=== PATIENT | male | born 1990 | race Caucasian/White ===

== ENCOUNTER 2024-07-14 10:44 | Emergency (ER) | payer OTHER, SELFPAY ==
--- NOTE | 2024-07-14 10:54 | ED_ITS ---
HPI - Abdominal Pain General Chief Complaint: Urogenital-Male Stated Complaint: Back Pain/Male Problems Time Seen by Provider: 07/14/24 10:54 Source: patient, RN notes reviewed and old records reviewed Mode of arrival: ambulatory Limitations: no limitations History of Present Illness HPI narrative: Patient presents with complaints of intermittent back pain over the past 6 days that occasionally radiates to the left groin. He denies all injury and trauma. He reports that he has had similar symptoms in the past, reports the symptoms were not all the way workup because he was imprisoned. He has been taking ib uprofen without relief. He is observed ambulating with steady gait. He denies any fever, chills, sweats. Denies any numbness or tingling. Denies loss of bowel or bladder control. No other concerns or complaints today. Related Data Home Medications Medication Instructions Recorded Confirmed diphenhydramine HCl 50 mg capsule 50 mg PO DAILY 07/14/24 07/14/24 (Banophen) duloxetine 60 mg capsule,delayed 60 mg PO DAILY 07/14/24 07/14/24 release Allergies Allergy/AdvReac Type Severity Reaction Status Date / Time cyclobenzaprine Allergy Mild Anaphylaxis Verified 07/14/24 11:29 Penicillins Allergy Mild Nausea and Verified 07/14/24 10:46 Vomiting Review of Systems Review of Systems: All systems reviewed & are unremarkable except as noted in HPI and below Constitutional: Constitutional: Reports no additional constitutional complaints ENT: Reports system reviewed and no additional complaints, except as documented Cardiovascular: Cardiovascular: Reports no additional cardiovascular complaints Respiratory: Respiratory: Reports no additional respiratory complaints Gastrointestinal: Gastrointestinal: Reports no additional gastrointestinal complaints Genitourinary: Genitourinary: Reports no additional male genitourinary complaints and Reports as per HPI Musculoskeletal: Musculoskeletal: Reports no additional musculoskeletal complaints and Reports as per HPI PMFSH Comments At the time of my signature, I reviewed and agree with the nursing past medical, surgical, social, and family history. There is no relevant family history pertinent to the patient complaint. Exam Const: General: cooperative, no acute distress, alert and awake Orientation/consciousness: oriented to person, oriented to place and oriented to time HENMT: Head: normal to inspection Resp: Effort & Inspection: normal respiratory effort and able to speak in complete sentences Auscultation: clear to auscultation bilaterally, no crackles, no rales, no rhonchi and no wheezes Cardio: Palpation: normal PMI Rate: regular rate Rhythm: regular rhythm Heart sounds: S1 normal heart sound present and S2 normal heart sound present GI: GI Palp: No abdominal tenderness and Yes Soft to palpation Auscultation: normal bowel sounds : General: Yes no CVA tenderness Back/Spine/Pelvis: Back: no CVA tenderness Thoracic/Lumbar Spine: pain with thoraco-lumbar ROM Neuro: General: oriented to person, oriented to place and oriented to time Cranial nerves: Yes CN's II-XII intact bilaterally Psych: Appearance: grossly normal Thought process: Normal thought process present Insight: Good insight present (Psych) Judgement: Good judgement present (Psych) Course Course Level of Care: Express Care Visit Vital Signs Vital signs: Vital Signs Temperature 98.4 F 07/14/24 10:57 Pulse Rate 91 07/14/24 10:57 Respiratory Rate 19 07/14/24 10:57 Blood Pressure 178/100 H 07/14/24 10:57 Pulse Oximetry 99 07/14/24 10:57 Oxygen Delivery Room Air 07/14/24 10:57 Temperature 98.4 F 07/14/24 10:57 Pulse Rate 91 07/14/24 10:57 Respiratory Rate 19 07/14/24 10:57 Blood Pressure 178/100 H 07/14/24 10:57 Pulse Oximetry 99 07/14/24 10:57 Oxygen Delivery Room Air 07/14/24 10:57 Reviewed MDM - Abdominal Pain MDM Narrative Medical decision making narrative: Patient presents with complaints of low back pain that sometimes radiates to the groin. He is not having any urinary symptoms. Reassuring UA. STI panel pending, although patient does deny penile discharge. Extremely elevated blood pressure was discussed with patient, he does report that he has not had any medications for blood pressure in the past to his knowledge. States that this blood pressure is an outlier. He declines to have us recheck the blood pressure today. Says that he believes his blood pressure is elevated because he is ?mad?. Will treat as lumbar ago, patient intolerant of muscle relaxers. Therefore those will not be prescribed. Will do steroid burst. Patient advised to follow-up primary care provider. Emergency department for new or worse symptoms. Discharge instructions reviewed with patient, as well as provided in writing per nursing staff. The instructions also include specific and strict return/GO TO THE ER as well as f/u information. All questions have been answered, and the patient deny any further questions with discharge and discharge plan. Some parts of this dictation were generated by voice recognition software and may contain typographical and/or grammatical inaccuracies. Differential Diagnosis Differential diagnosis: Likely other (Differentials include radiculopathy, pyelonephritis, STI, UTI) Medical Records Attestation: I reviewed the patient's medical records. Lab Data Attestation: I reviewed the patient's lab results. Labs: Lab Results 07/14/24 Range/Units 10:58 POC Urine Color Yellow POC Urine Clarity Clear POC Urine pH 7.0 POC Ur Specif Combined [place] 1.020 POC Urine Protein Negative (Negative) POC Ur Glucose (UA) Negative (Negative) POC Urine Ketones Negative (Negative) POC Urine Blood Negative (Negative) POC Urine Nitrite Negative (Negative) POC Urine Bilirubin Negative (Negative) POC Urine Urobilinogen 0.2 POC U Leukocyte Esteras Negative (Negative) Discharge Plan Discharge Clinical Impression: Elevated blood pressure reading Back pain Qualifiers: Back pain location: low back pain Chronicity: acute Back pain laterality: bilateral Sciatica presence: without sciatica Qualified Code(s): M54.50 - Low back pain, unspecified Patient Disposition: Home, Self-Care Condition: Stable Instructions: Antibiotic Form, Acute Low Back Pain (ED) Additional Instructions: Take all medications as prescribed. Follow-up with primary care provider. Emergency department for new or worse symptoms. Blood pressure quite elevated today at 178/100. Normal blood pressure is 120/80 Patient Language: Turkish Prescriptions: New prednisone 50 mg tablet 50 mg PO DAILY Qty: 5 0RF No Action diphenhydramine HCl [Banophen] 50 mg capsule 50 mg PO DAILY duloxetine 60 mg capsule,delayed release(DR/EC) 60 mg PO DAILY Follow-up/Referrals: Angeles,MD Lauro [Primary Care Provider] - Time of Disposition: 11:26
[2024-07-14 10:57] VITALS: BP 178/100; PULSE 91; RESP 19; TEMP 36.9; O2SAT 99
[2024-07-14 11:11] LABS: EDUAAPPEAR Clear; EDUABILI Negative (Negative); EDUABLOOD Negative (Negative); EDUACOLOR1 Yellow; EDUAGLUCOSE Negative (Negative); EDUAKETONE Negative (Negative); EDUALEUKO Negative (Negative); EDUANITRATE Negative (Negative); EDUAPROTEIN Negative (Negative); EDUAUROBILI 0.2
[2024-07-14 19:15] LABS: Trichomonas Vag PCR NOT DETECTED (NOT DETECTE)
[2024-07-14 19:40] LABS: Chlamydia trachomatis NOT DETECTED (NOT DETECTE); Neisseria gonorrhoeae PCR NOT DETECTED (NOT DETECTE)
== END 2024-07-14 11:30 | disposition home or self-care (01) ==
PROVIDERS: Emergency Provider Nurse Practitioner Family; PCP Family Medicine
DX: R03.0 Elevated blood-pressure reading, without diagnosis of hypertension (principal); M54.50 Low back pain, unspecified
CPT/HCPCS: 81003; 87086; 87491; 87591; 87661; 99203; G0463

== ENCOUNTER 2024-09-15 10:55 | Emergency (ER) | payer OTHER, SELFPAY ==
[2024-09-15 11:03] VITALS: BP 141/74; PULSE 84; RESP 16; TEMP 36.3; O2SAT 98
--- NOTE | 2024-09-15 11:05 | ED.URI ---
HPI - URI/Sore Throat General Chief Complaint: Upper Respiratory Infection Stated Complaint: Cough/Bodyaches/Sinus Time Seen by Provider: 09/15/24 11:08 Source: patient Mode of arrival: ambulatory Limitations: no limitations History of Present Illness HPI Narrative: Tarik is a 34-year-old male patient presenting to the clinic today with complaints of cough, body aches, and sinus congestion. He denies any fever or chills. States symptoms started 2 days ago. Denies any chest pain or shortness of breath. MD elicited complaint: sore throat and nasal congestion Related Data Home Medications ?Medication ?Instructions ?Recorded ?Confirmed ?Last Taken ?Type duloxetine 60 mg capsule,delayed 60 mg PO DAILY 07/14/24 09/15/24 Unknown History release atenolol 25 mg tablet 25 mg PO Q24H 09/15/24 09/15/24 Unknown History bupropion HCl 150 mg 24 hr tablet, 150 mg PO DAILY 09/15/24 09/15/24 Unknown History extended release gabapentin 600 mg tablet 600 mg PO Q8H 09/15/24 09/15/24 Unknown History tramadol 50 mg tablet 50 mg PO DAILY 09/15/24 09/15/24 Unknown History Allergies Allergy/AdvReac Type Severity Reaction Status Date / Time cyclobenzaprine Allergy Mild Anaphylaxis Verified 09/15/24 10:57 Penicillins Allergy Mild Nausea and Verified 09/15/24 10:57 Vomiting Review of Systems Review of Systems: Pertinent positives per HPI. Patient denies any fever, chills, rash, headache, visual changes, dizziness, shortness of breath, chest pain, palpitations, nausea, vomiting, diarrhea, constipation, abdominal pain, or any urinary issues. PMFSH Comments At the time of my signature, I reviewed and agree with the nursing past medical, surgical, social, and family history. There is no relevant family history pertinent to the patient complaint. Exam Narrative: General: Well-developed, obese, in no apparent distress Head: Normocephalic, atraumatic Eyes: Pupils equally round and reactive to light bilaterally, EOM intact, sclera and conjunctive clear, no discharge, lids normal Ears: TMs intact and clear, ear canals clear, no drainage, grossly hearing normal. Nose: Nares patent, clear nasal discharge, no inflammation, no sinus tenderness. Mouth: Oral pharynx without lesions or masses, good dentition, MMM. Neck: Supple, trachea midline, no enlargement of anterior or posterior cervical nodes, no thyroid masses or goiter palpable. Cardio: Regular rate and rhythm, s1 and s2 normal, no murmur appreciated. Resp: Inspiratory and expiratory wheezing, no rhonchi, rales, or rubs Course Course Emergency Course: Portions of this record may have been created with voice recognition software. Level of Care: Express Care Visit Vital Signs Vital signs: Vital Signs Temperature 36.3 C L 09/15/24 11:03 Pulse Rate 84 09/15/24 11:03 Respiratory Rate 16 09/15/24 11:03 Blood Pressure 141/74 H 09/15/24 11:03 Pulse Oximetry 98 09/15/24 11:03 Oxygen Delivery Room Air 09/15/24 11:03 Temperature 36.3 C L 09/15/24 11:03 Pulse Rate 84 09/15/24 11:03 Respiratory Rate 16 09/15/24 11:03 Blood Pressure 141/74 H 09/15/24 11:03 Pulse Oximetry 98 09/15/24 11:03 Oxygen Delivery Room Air 09/15/24 11:03 Vital signs reviewed MDM - URI/Sore Throat MDM Narrative Medical decision making narrative: At the time of visit patient is resting comfortably on the exam table. Patient appears to be nontoxic. Labs: COVID testing was positive in the clinic today. Medications: DuoNeb treatment was given in the clinic today for inspiratory and expiratory wheezing. Wheezing improved after DuoNeb treatment was given and patient reports feeling as though he can take a deeper breath. Plan: Patient has COVID. Will send in prescription for albuterol inhaler. Supportive measures were discussed with the patient and they voiced understanding discharge instructions and agrees to treatment plan. Return precautions reviewed Differential Diagnosis Differential diagnosis: Likely upper respiratory infection, otitis media, sinusitis, viral infection, bronchitis, influenza, pharyngitis and other (COVID) Discharge Plan Discharge Clinical Impression: COVID-19 Patient Disposition: Home, Self-Care Condition: Stable Instructions: Antibiotic Form, How to Recover from COVID-19 at Home (ED) Additional Instructions: DuoNeb treatment was given in the clinic today. COVID test was positive May take DayQuil/NyQuil for cold/flu symptoms Take prescription medications only as prescribed-albuterol inhaler Increase fluids and stay well hydrated Tylenol/motrin for pain/fever Flonase and OTC antihistamines as directed Vicks vapor rub to open sinuses Sinus rinses for congestion Cepacol spray, cough drops, throat lozenges, warm tea with honey/lemon, gargle salt water to soothe throat BRAT diet for diarrhea Clear liquids x 24 hours then advance as tolerated for nausea/vomiting Go to the ED if you develop a worsening in your condition- high fever not controlled by Tylenol or Motrin, dehydration, weakness, lethargy, shortness of breath, or chest pain. Follow up with your PCP in 3-5 days if symptoms persist. Patient Language: [place] Prescriptions: New albuterol sulfate 90 mcg/actuation HFA aerosol inhaler 2 puff inhalation Q4-6H PRN (Reason: shortness of breath or wheezing) 30 Days Qty: 8.5 0RF No Action duloxetine 60 mg capsule,delayed release(DR/EC) 60 mg PO DAILY atenolol 25 mg tablet 25 mg PO Q24H bupropion HCl 150 mg tablet extended release 24 hr 150 mg PO DAILY gabapentin 600 mg tablet 600 mg PO Q8H tramadol 50 mg tablet 50 mg PO DAILY Follow-up/Referrals: Angeles,MD Lauro [Primary Care Provider] - Stand Alone Forms: Work/School Release IP Time of Disposition: 11:25 Quality NIHSS Nursing Documentation ED NIHSS nursing documentation: reviewed/agree
[2024-09-15] MEDS: IPRATROPIUM 0.5 MG/ALBUTEROL SULFATE 2.5 MG AMPUL.NEB 3 ML INHALATION (11:23)
[2024-09-15 11:26] LABS: EDCOVIDSCREEN Positive (Negative)
== END 2024-09-15 11:42 | disposition home or self-care (01) ==
PROVIDERS: Emergency Provider Nurse Practitioner Family; PCP Family Medicine
DX: U07.1 COVID-19 (principal); Z79.899 Other long term (current) drug therapy
CPT/HCPCS: 87426; 99213; G0463

== ENCOUNTER 2024-10-04 14:51 | Emergency (ER) | payer OTHER, SELFPAY ==
[2024-10-04 15:02] VITALS: BP 154/80; PULSE 77; RESP 16; TEMP 36.2; O2SAT 97
--- NOTE | 2024-10-04 15:30 | ED_ITS ---
HPI - URI/Sore Throat General Chief Complaint: Upper Respiratory Infection Stated Complaint: sore throat,cough,left ear pain Time Seen by Provider: 10/04/24 15:30 Source: patient and RN notes reviewed Mode of arrival: ambulatory Limitations: no limitations History of Present Illness HPI Narrative: 34-year-old male presents with concern for cough for 3 weeks. Reports he tested positive for COVID 3 weeks ago his cough has not gone away and has gotten worse recently. Reports over last several days he has developed sinus congestion, drainage, sore throat, ear pain. He reports he has been using his albuterol in haler about twice a day without much relief. MD elicited complaint: cough and nasal congestion Related Data Home Medications ?Medication ?Instructions ?Recorded ?Confirmed ?Last Taken ?Type duloxetine 60 mg capsule,delayed 60 mg PO DAILY 07/14/24 09/15/24 Unknown History release atenolol 25 mg tablet 25 mg PO Q24H 09/15/24 09/15/24 Unknown History bupropion HCl 150 mg 24 hr tablet, 150 mg PO DAILY 09/15/24 09/15/24 Unknown History extended release gabapentin 600 mg tablet 600 mg PO Q8H 09/15/24 09/15/24 Unknown History tramadol 50 mg tablet 50 mg PO DAILY 09/15/24 09/15/24 Unknown History Allergies Allergy/AdvReac Type Severity Reaction Status Date / Time cyclobenzaprine Allergy Mild Anaphylaxis Verified 09/15/24 10:57 Penicillins Allergy Mild Nausea and Verified 09/15/24 10:57 Vomiting Review of Systems Review of Systems: CONSTITUTIONAL: Reports malaise, chills, sweats EYES: Denies visual changes, redness, or discharge. ENT: Reports rhinorrhea, congestion, otalgia and sore throat. CARDIOVASCULAR: Denies chest pain, palpitations, or edema. RESPIRATORY: Reports cough, dyspnea. GASTROINTESTINAL: Denies abdominal pain, nausea, vomiting, diarrhea SKIN: Denies rash or itching. MUSCULOSKELETAL: Reports myalgia. NEUROLOGIC: Denies headache. All systems reviewed & are unremarkable except as noted in HPI and below PMFSH Comments At time of signature, agree with nursing past medical, surgical, social and family history. There is no relevant family history pertinent to the presenting complaint Exam Narrative: GENERAL: Nontoxic-appearing, well-nourished, and in no acute distress. HEAD: Normocephalic EYES: PERRLA, conjunctivae clear ENT: Nares clear. Mucous membranes moist. TM pearly fallon with sharp light reflex bilaterally; no tragal tenderness. Oropharynx not erythematous without lesions. Tonsils not enlarged and without exudate, no drooling, no hoarseness, no trismus, uvula midline. NECK: Supple. No lymphadenopathy CHEST: Expiratory wheeze throughout with scattered rhonchi, breath sounds equal. No rhonchi, rales, or stridor. No respiratory distress, speaks in full sentences. HEART: Regular rate and rhythm. No murmur heard. SKIN: Warm, dry, no rash. NEURO: Alert and oriented x3. PSYCH: Normal mood and affect Course Course Emergency Course: Patient is aware of diagnosis, understands and agrees to treatment plan. Anticipatory guidance given. Patient agrees to follow-up as directed and is aware of reasons to seek care at the emergency department. Portions of this record may have been created with voice recognition software Level of Care: Express Care Visit Vital Signs Vital signs: Vital Signs Temperature 97.1 F L 10/04/24 15:02 Pulse Rate 77 10/04/24 15:02 Respiratory Rate 16 10/04/24 15:02 Blood Pressure 154/80 H 10/04/24 15:02 Pulse Oximetry 97 10/04/24 15:02 Oxygen Delivery Room Air 10/04/24 15:02 Temperature 97.1 F L 10/04/24 15:02 Pulse Rate 77 10/04/24 15:02 Respiratory Rate 16 10/04/24 15:02 Blood Pressure 154/80 H 10/04/24 15:02 Pulse Oximetry 97 10/04/24 15:02 Oxygen Delivery Room Air 10/04/24 15:02 Reviewed. MDM - URI/Sore Throat MDM Narrative Medical decision making narrative: Differential diagnosis considered: Gilbert virus, strep pharyngitis, allergic rhinitis, upper respiratory tract infection, sinusitis, rhinosinusitis, nasopharyngitis. viral pharyngitis, otitis media, otitis externa, pneumonia, bronchitis, viral cough syndrome, viral syndrome, and influenza. Exam findings show no acute concerns or changes; patient is non-toxic appearing and is in no distress. Patient is appropriate for outpatient treatment and follow-up. Lab Data Attestation: I reviewed the patient's lab results. Critical Care Time Critical Care Time Critical Care Time: No Discharge Plan Discharge Clinical Impression: Lower respiratory tract infection Patient Disposition: Home, Self-Care Condition: Stable Instructions: Antibiotic Form, Acute Bronchitis (ED) Additional Instructions: Take medication as directed Recommend antihistamine such as Benadryl at night time and Zyrtec or Obdulia during the day Use inhaler as needed for cough, wheezing, shortness of breath or chest tightnes s. Also, recommend symptomatic treatment includes: rest, fluids, and increase humidity of the air at home. Recommend Acetaminophen as directed on the bottle to reduce fever, pain, headache. Avoid smoking/second-hand smoke. Please schedule a follow-up visit with your personal physician for further evaluation and treatment within 3-5days. Including recheck and discussion of your blood pressure. If your symptoms persist, change or worsen significantly before you can contact your personal physician then please, without delay, go to the emergency department for further evaluation. Patient Language: Indonesian Prescriptions: New azithromycin [Zithromax Z-Gildardo] 250 mg tablet See Rx Instructions .ROUTE .COMPLEX Qty: 6 0RF Rx Instructions: take 500 mg today (day 1), then 250 mg for 4 days (days 2-5) prednisone 20 mg tablet 40 mg PO DAILY 5 Days Qty: 10 0RF albuterol sulfate 90 mcg/actuation HFA aerosol inhaler 2 puff INHALATION QID PRN (Reason: shortness of breath or wheezing) Qty: 8.5 0RF No Action duloxetine 60 mg capsule,delayed release(DR/EC) 60 mg PO DAILY atenolol 25 mg tablet 25 mg PO Q24H bupropion HCl 150 mg tablet extended release 24 hr 150 mg PO DAILY gabapentin 600 mg tablet 600 mg PO Q8H tramadol 50 mg tablet 50 mg PO DAILY albuterol sulfate 90 mcg/actuation HFA aerosol inhaler 2 puff inhalation Q4-6H PRN (Reason: shortness of breath or wheezing) 30 Days Qty: 8.5 0RF Follow-up/Referrals: Angeles,MD Lauro [Primary Care Provider] - Stand Alone Forms: Work/School Release IP Time of Disposition: 15:42
[2024-10-04 15:50] LABS: EDSTREPNEGPOS1 Negative (Negative)
== END 2024-10-04 15:40 | disposition home or self-care (01) ==
PROVIDERS: Emergency Provider Nurse Practitioner; PCP Family Medicine
DX: J22 Unspecified acute lower respiratory infection (principal); I10 Essential (primary) hypertension; E78.00 Pure hypercholesterolemia, unspecified; K21.9 Gastro-esophageal reflux disease without esophagitis; F41.9 Anxiety disorder, unspecified; Z86.16 Personal history of COVID-19
CPT/HCPCS: 87081; 87880; 99213; G0463

== ENCOUNTER 2024-10-18 15:03 | Emergency (ER) | payer OTHER, SELFPAY ==
[2024-10-18 15:18] VITALS: BP 152/81; PULSE 66; RESP 16; TEMP 35.8; O2SAT 99
--- NOTE | 2024-10-18 16:37 | ED_ITS ---
HPI - Extremity Problem General Chief complaint: Extremity Problem,Nontraumatic Stated complaint: both feet hurt Time Seen by Provider: 10/18/24 16:20 Source: patient and RN notes reviewed Mode of arrival: ambulatory Limitations: no limitations History of Present Illness HPI Narrative: Patient presents today complaining of bilateral foot pain x1 month. Patient recently got out of longterm and is having trouble standing while working wearing the shoes he has. States he believes they may not wide enough and causing problems. He has been taking ibuprofen without relief. He has an appointment with Podiatry on 11/01/2024 but is wanting an evaluation and recommendations today at [facility]. Related Data Home Medications ?Medication ?Instructions ?Recorded ?Confirmed ?Last Taken ?Type duloxetine 60 mg capsule,delayed 60 mg PO DAILY 07/14/24 09/15/24 Unknown History release atenolol 25 mg tablet 25 mg PO Q24H 09/15/24 09/15/24 Unknown History bupropion HCl 150 mg 24 hr tablet, 150 mg PO DAILY 09/15/24 09/15/24 Unknown History extended release gabapentin 600 mg tablet 600 mg PO Q8H 09/15/24 09/15/24 Unknown History tramadol 50 mg tablet 50 mg PO DAILY 09/15/24 09/15/24 Unknown History Allergies Allergy/AdvReac Type Severity Reaction Status Date / Time cyclobenzaprine Allergy Mild Anaphylaxis Verified 10/18/24 15:13 Penicillins Allergy Mild Nausea and Verified 10/18/24 15:13 Vomiting Review of Systems Review of Systems: CONSTITUTIONAL: Denies body aches, fever, chills, or sweats. EYES: Denies visual changes, redness, or discharge. ENT: Denies rhinorrhea, congestion, sore throat, or otalgia. CARDIOVASCULAR: Denies chest pain, palpitations, or edema. RESPIRATORY: Denies cough or dyspnea. GASTROINTESTINAL: Denies abdominal pain, nausea, vomiting, or diarrhea. GENITOURINARY: Denies dysuria or hematuria. SKIN: Denies rash, itching, or wounds. MUSCULOSKELETAL: Bilateral foot pain NEUROLOGIC: Denies headache, numbness, tingling, or weakness. PSYCH: Denies depression or anxiety. PMFSH Comments At time of signature, I have reviewed and agree with nursing past medical, surgical, social and family history unless otherwise noted. Please see nursing chart for further information. There is no relevant family history pertinent to the presenting complaint Exam Narrative: GENERAL: Well-appearing, well-nourished, and in no acute distress. HEAD: Normocephalic, atraumatic. EYES: EOMI. No redness or drainage. Conjunctivae normal. ENT: Mucous membranes pink and moist. NECK: Normal AROM. CHEST: No respiratory distress. EXTREMITIES: Patient has very wide feet with thick calluses on the heels and plantar 1st and 5th MTP areas. On the lateral 5th distal metatarsal bilaterally, there are small areas of skin that appear to be rubbed raw from his shoes due to them being too narrow. These areas are tender to palpation. Small bunion on the left. SKIN: Warm, dry, no rash. Capillary refill normal. Normal skin turgor. NEURO: No focal deficits. Alert and oriented x3. Gait steady. PSYCH: Normal affect. No signs of depression or anxiety. Course Course Level of Care: Express Care Visit Vital Signs Vital signs: Vital Signs Temperature 96.4 F L 10/18/24 15:18 Pulse Rate 66 10/18/24 15:18 Respiratory Rate 16 10/18/24 15:18 Blood Pressure 152/81 H 10/18/24 15:18 Pulse Oximetry 99 10/18/24 15:18 Oxygen Delivery Room Air 10/18/24 15:18 Temperature 96.4 F L 10/18/24 15:18 Pulse Rate 66 10/18/24 15:18 Respiratory Rate 16 10/18/24 15:18 Blood Pressure 152/81 H 10/18/24 15:18 Pulse Oximetry 99 10/18/24 15:18 Oxygen Delivery Room Air 10/18/24 15:18 Reviewed MDM - Extremity (Nontraumatic) MDM Narrative Medical decision making narrative: Patient chest purchased a pair of, ?orthopedic shoes on line but they seem to narrow. Discussed within that he needs to be seen at a shoe store to have his feet properly measured for shoes as the seem quite wide. At this time, patient has a GPS ankle monitor and is only cleared to go home and work. Note written for patient to see if he could get cleared to go to a local shoe store to get measured for proper shoes before a podiatry appointment. Prescription for Mobic sent to pharmacy for pain. Anticipatory guidance given. Differential Diagnosis Differential diagnosis: Likely cellulitis and other (Friction wound, bunion, callus) Critical Care Time Critical Care Time Critical Care Time: No Discharge Plan Discharge Clinical Impression: Arthralgia of both feet Patient Disposition: Home, Self-Care Condition: Stable Additional Instructions: Take the Mobic as prescribed. Keep your appointment to follow-up with Podiatry. You may consider having your feet measured and evaluated at the [employer] store locally. Your blood pressure was elevated above 120/80 today at Urgent Care. This puts you above the threshold for follow up. Please schedule a followup visit with your personal physician as soon as possible, for further evaluation and treatment. Even blood pressure exceeding 120/80 may indicate pre-hypertension. Patient Language: Citizen Of [place] Prescriptions: New meloxicam 15 mg tablet 15 mg PO DAILY Qty: 20 0RF No Action duloxetine 60 mg capsule,delayed release(DR/EC) 60 mg PO DAILY prednisone 20 mg tablet 40 mg PO DAILY 5 Days Qty: 10 0RF albuterol sulfate 90 mcg/actuation HFA aerosol inhaler 2 puff INHALATION QID PRN (Reason: shortness of breath or wheezing) Qty: 8.5 0RF atenolol 25 mg tablet 25 mg PO Q24H bupropion HCl 150 mg tablet extended release 24 hr 150 mg PO DAILY gabapentin 600 mg tablet 600 mg PO Q8H tramadol 50 mg tablet 50 mg PO DAILY albuterol sulfate 90 mcg/actuation HFA aerosol inhaler 2 puff inhalation Q4-6H PRN (Reason: shortness of breath or wheezing) 30 Days Qty: 8.5 0RF Follow-up/Referrals: Angeles,MD Lauro [Primary Care Provider] - Stand Alone Forms: Work/School Release IP Time of Disposition: 16:41
== END 2024-10-18 16:43 | disposition home or self-care (01) ==
PROVIDERS: Emergency Provider Nurse Practitioner; PCP Family Medicine
DX: M25.572 Pain in left ankle and joints of left foot (principal); M25.571 Pain in right ankle and joints of right foot; I10 Essential (primary) hypertension; E78.00 Pure hypercholesterolemia, unspecified; K21.9 Gastro-esophageal reflux disease without esophagitis; F41.9 Anxiety disorder, unspecified
CPT/HCPCS: 99213; G0463

== ENCOUNTER 2024-12-04 08:55 | Emergency (ER) | payer OTHER, MEDICAID, SELFPAY ==
[2024-12-04 09:02] VITALS: BP 171/93; PULSE 91; RESP 16; TEMP 36.6; O2SAT 100
--- NOTE | 2024-12-04 09:03 | ED_ITS ---
HPI - Dental/Oral General Chief complaint: Dental/Oral Stated complaint: left side tooth pain Time Seen by Provider: 12/04/24 09:00 Source: patient Mode of arrival: ambulatory Limitations: no limitations History of Present Illness HPI Narrative: Patient is a 34-year-old male who presents with left upper dental pain with left-sided facial swelling. Patient had teeth pulled while in snf. Patient has been alternate Tylenol and ibuprofen with only mild relief. Patient has also been using ice. Related Data Home Medications ?Medication ?Instructions ?Recorded ?Confirmed ?Last Taken ?Type duloxetine 60 mg capsule,delayed 60 mg PO DAILY 07/14/24 09/15/24 Unknown History release atenolol 25 mg tablet 25 mg PO Q24H 09/15/24 09/15/24 Unknown History bupropion HCl 150 mg 24 hr tablet, 150 mg PO DAILY 09/15/24 09/15/24 Unknown History extended release gabapentin 600 mg tablet 600 mg PO Q8H 09/15/24 09/15/24 Unknown History tramadol 50 mg tablet 50 mg PO DAILY 09/15/24 09/15/24 Unknown History Allergies Allergy/AdvReac Type Severity Reaction Status Date / Time cyclobenzaprine Allergy Mild Anaphylaxis Verified 10/18/24 15:13 Penicillins Allergy Mild Nausea and Verified 10/18/24 15:13 Vomiting Review of Systems Review of Systems: All systems reviewed & are unremarkable except as noted in HPI and below Constitutional: Constitutional: Denies body ache(s), Denies fever(s), Denies headache(s), Denies malaise and Denies weakness Eyes: Eyes: Denies loss of vision ENT: Denies otalgia, Reports facial pain (jaw), Denies headache(s), Denies nasal discharge, Denies sinus pain and Denies sore throat Cardiovascular: Cardiovascular: Denies chest pain, Denies irregular heart rhythm and Denies dyspnea Respiratory: Respiratory: Denies dyspnea Gastrointestinal: Gastrointestinal: Denies abdominal pain, Denies melena, Denies hematochezia, Denies diarrhea, Denies nausea and Denies vomiting Musculoskeletal: Musculoskeletal: Denies back pain, Denies myalgias and Denies arthralgias Integumentary/Breasts: Skin/Breast: Denies pruritus and Denies rash Neurologic: Denies headache(s), Denies loss of vision and Denies weakness Psychiatric: Psychiatric: Reports no additional psychiatric complaints PMFSH Comments At time of signature, agree with nursing past medical, surgical, social and family history. There is no relevant family history pertinent to the presenting complaint. Exam Const: General: cooperative, healthy appearing, comfortable, no acute distress and well nourished Nutritional Appearance: well nourished Orientation/consciousness: patient oriented x3 Limitations: no limitations HENMT: Head: normal to inspection, normocephalic and atraumatic Ears: hearing grossly normal bilaterally, external ears normal, TM's normal bilaterally and mastoids normal bilaterally Face/Nose/Sinus: Normal external nose present, normal facial exam and face symmetric Face and sinus: normal facial exam and face symmetric Mouth: Yes Normal oral and palatal mucosa present, Yes lip normal, Yes tongue normal, Yes Normal salivary glands and ducts present and Yes moist mucous membranes Teeth and gingiva: abnormal tooth and associated gingiva upper left second bicuspid tender and with associated gingival edema, caries and poor dentition Eyes: General: appearance normal, both eyes and all related structures Alignment and Position: alignment normal and position normal Periorbital: periorbital findings normal Eyelids: eyelids normal Pupils: Equal, round and reactive pupils present EOM: EOMs intact bilaterally Neck: Neck: normal visual inspection, full ROM, no lymphadenopathy and supple Chest: Chest palpation & inspection: normal inspection of the chest Resp: Effort & Inspection: normal respiratory effort and able to speak in complete sentences Auscultation: clear to auscultation bilaterally Cardio: Rate: regular rate Rhythm: regular rhythm Heart sounds: S1 normal heart sound present and S2 normal heart sound present GI: Inspection: normal to inspection Skin: General skin exam: normal color and no rashes or lesions noted Neuro: General: patient oriented x3 and moves all extremities Cranial nerves: Yes Equal, round and reactive pupils present Speech: normal speech Gait exam (Neuro): Normal gait present Extrem: General: normal to inspection, full ROM and no edema Psych: Appearance: grossly normal and well kempt Mental Status: mental status grossly normal Speech and movement: Normal speech and movement present Affect: normal affect Attitude: cooperative Thought process: Normal thought process present Course Course Emergency Course: Patient is aware of diagnosis, understands and agrees to treatment plan. An ticipatory guidance given. Patient agrees to follow-up as directed and is aware of reasons to seek care at the emergency department. Portions of this record may have been created with voice recognition software Level of Care: Express Care Visit Vital Signs Vital signs: Vital Signs Temperature 36.6 C 12/04/24 09:02 Pulse Rate 91 12/04/24 09:02 Respiratory Rate 16 12/04/24 09:02 Blood Pressure 171/93 H 12/04/24 09:02 Pulse Oximetry 100 12/04/24 09:02 Oxygen Delivery Room Air 12/04/24 09:02 Temperature 36.6 C 12/04/24 09:02 Pulse Rate 91 12/04/24 09:02 Respiratory Rate 16 12/04/24 09:02 Blood Pressure 171/93 H 12/04/24 09:02 Pulse Oximetry 100 12/04/24 09:02 Oxygen Delivery Room Air 12/04/24 09:02 Reviewed MDM - Dental/Oral MDM Narrative Medical decision making narrative: Patients pain and complaint coupled with physical findings are consistant with dentalgia. There are no focal signs of space occupying lesions that are compromising to the airway; no dysphagia, odynophagia, dysphonia, or dyspnea. No uvular deviation or soft palate edema. Patient is non-toxic appearing. The floor of the mouth is soft with no signs of Farzad's Angina; no induration below mandible, no neck pain. Patient is without trismus or drooling and able to swallow secretions. Patient is felt appropriate for discharge home with dental follow up. Differential Diagnosis Differential diagnosis: Likely gingival abscess, dental caries, toothache, dental abscess and fracture of tooth Medical Records Attestation: I reviewed the patient's medical records. Discharge Plan Discharge Clinical Impression: Dental abscess Patient Disposition: Home, Self-Care Condition: Stable Instructions: Dental Abscess (ED) Additional Instructions: Take antibiotic until it's gone. Brushing teeth at least twice daily with gentle flossing. Avoid temperature extremes---when you eat. Salt gargle to rinse your mouth after every meal You may apply ice to the face to reduce pain/swelling. For pain, you may take: Tylenol 650-1000mg by mouth every 4-6 hours. Do not exceed 4000mg in 24 hours. Advil (Ibuprofen) 600 mg by mouth every 6 hours. Do not exceed 2400mg in 24 hours. Also, recommend regular dental check up one-two times a year to prevent tooth decay and other periodontal disease. Follow-up with the dentist as soon as possible--see the list provided Your blood pressure was elevated above 120/80 today at Urgent Care. This puts you above the threshold for follow up visit with a primary care provider. High blood pressure does not usually cause any symptoms, however it may lead to kidney failure, stroke, heart disease just to name a few if untreated . Many people are anxious when seeing a provider or nurse. As a result, you are not diagnosed with hypertension at this time unless your blood pressure is persistently high at two office visits at least one week apart. Some things that can help lower blood pressure are lifestyle modifications, such as light exercise, decreased salt in diet, and weight loss. It is important to follow up with a PCP about this within 1 week. If you are having a hard time finding a physician please call our [facility] liaison at [phone]. Patient Language: [place] Prescriptions: New lidocaine HCl [Lidocaine Viscous] 2 % solution 5 ml mucous membrane TID PRN (Reason: pain) 7 Days Qty: 100 0RF amoxicillin-pot clavulanate 875-125 mg tablet 1 tablet PO Q12H 10 Days Qty: 20 0RF No Action duloxetine 60 mg capsule,delayed release(DR/EC) 60 mg PO DAILY prednisone 20 mg tablet 40 mg PO DAILY 5 Days Qty: 10 0RF albuterol sulfate 90 mcg/actuation HFA aerosol inhaler 2 puff INHALATION QID PRN (Reason: shortness of breath or wheezing) Qty: 8.5 0RF meloxicam 15 mg tablet 15 mg PO DAILY Qty: 20 0RF atenolol 25 mg tablet 25 mg PO Q24H bupropion HCl 150 mg tablet extended release 24 hr 150 mg PO DAILY gabapentin 600 mg tablet 600 mg PO Q8H tramadol 50 mg tablet 50 mg PO DAILY albuterol sulfate 90 mcg/actuation HFA aerosol inhaler 2 puff inhalation Q4-6H PRN (Reason: shortness of breath or wheezing) 30 Days Qty: 8.5 0RF Follow-up/Referrals: Angeles,MD Lauro [Primary Care Provider] - 3 Days Stand Alone Forms: Work/School Release IP Time of Disposition: 09:33
== END 2024-12-04 09:45 | disposition home or self-care (01) ==
PROVIDERS: Emergency Provider Nurse Practitioner Family; PCP Family Medicine
DX: K04.7 Periapical abscess without sinus (principal); I10 Essential (primary) hypertension; E78.00 Pure hypercholesterolemia, unspecified; K21.9 Gastro-esophageal reflux disease without esophagitis; F41.9 Anxiety disorder, unspecified
CPT/HCPCS: 99213; G0463